=== PATIENT | male | born 1965 | race African-American/Black ===

== ENCOUNTER 2018-11-18 01:25 | Inpatient (IN) | payer MEDICAID ==
[~2018-11-18] VITALS: Ht 185.4 cm; Wt 65.8 kg
[2018-11-18] VITALS (8 sets, daily range): BP systolic 122–148; BP diastolic 60–89
[~2018-11-18 01:25] MED LIST: ALBU18HF2 IH
[2018-11-18] MEDS ORDERED: MAGNESIUM 2 G PREMIX 50 ML IV STA (01:33)
[2018-11-18] MEDS ORDERED: IPRATROPIUM BROMIDE (0.02%) 0.5MG/2.5ML NEB HHN STA (01:33)
[2018-11-18] MEDS ORDERED: ALBUTEROL (0.083%) 2.5MG/3ML NEB HHN STA (01:33)
[2018-11-18] MEDS ORDERED: METHYLPREDNISOLONE SOD SUCC 125 MG/2 ML VIAL IV STA (01:33)
[2018-11-18 03:46] LABS: HEMATOCRIT 45.7 % (42.0-52.0); HEMOGLOBIN 14.7 g/dL (14.0-18.0); MEAN CORPUSCULAR HEMOGLOBIN 30.8 pg (28.0-32.0); MEAN CORPUSCULAR VOLUME 95.6 fL (80.0-94.0); PLATELET 184 x1000/uL (130-400); RED BLOOD CELL COUNT 4.78 mill/uL (4.7-6.1); RED CELL DISTRIBUTION WIDTH 15.1 % (11.6-14.6)
[2018-11-18 03:48] LABS: CHLORIDE 109 mEq/L (98-107)
[2018-11-18 08:13] LABS: BG BASE EXCESS 3.4 mmol/L (-2.0-2.0); BG BILEVEL POS AIRWAY PRESSURE 15/5; BG CARBOXYHEMOGLOBIN 2.8 % (0.5-1.5); BG DEOXYHEMOGLOBIN 1.5 % (0.0-5.0); BG FRACTION INSPIRED OXYGEN 50; BG HCO3 ACT 30.3 mmol/L (22.0-26.0); BG METHEMOGLOBIN 0.2 % (0.0-1.5); BG OXYGEN SATURATION 98.5 % (92.0-98.5); BG OXYHEMOGLOBIN 95.5 % (94.0-97.0); BG PCO2 54.7 mmHg (35.0-45.0); BG PH 7.361 (7.350-7.450); BG PO2 126.5 mmHg (75.0-100.0); BG SAMPLE SITE RIGHT BRACHIAL; BG TOTAL HEMOGLOBIN 15.2 g/dL (12.0-18.0); BG VENT MODE MASK - BIPAP
[2018-11-18] MEDS ORDERED: IBUP-2030 MT (09:31)
[2018-11-18] MEDS ORDERED: IPRATROPIUM/ALBUTEROL 0.5-3(2.5)MG/3ML NEB HHN PRN (12:15)
[2018-11-18] MEDS ORDERED: MAGNESIUM/ALUMINUM HYDROXIDE/SIMETHICONE 30ML UDC PO PRN (12:45)
[2018-11-18] MEDS ORDERED: CLONIDINE 0.1MG TABLET PO PRN (12:45)
[2018-11-18] MEDS: IPRATROPIUM/ALBUTEROL 0.5-3(2.5)MG/3ML NEB HHN SCH ×3 (12:55→20:26)
[2018-11-18] MEDS: METHYLPREDNISOLONE SOD SUCC 40 MG/ML VIAL IV SCH ×2 (13:38→21:43)
[2018-11-18] MEDS: NICOTINE 14MG PATCH TD SCH (13:39)
[2018-11-18 15:05] LABS: CLARITY URINE CLEAR (CLEAR); COLOR URINE YELLOW (YELLOW); KETONES URINE NEGATIVE (NEGATIVE); LEUKOCYTE ESTERASE URINE NEGATIVE (NEGATIVE); NITRITE URINE NEGATIVE (NEGATIVE); OCCULT BLOOD URINE NEGATIVE (NEGATIVE); PH URINE 7.5 (4.5-8.0); PROTEIN URINE NEGATIVE (NEGATIVE); SPECIFIC GRAVITY URINE 1.023 (1.005-1.030); UROBILINOGEN URINE 0.2 E.U./dL (0.2-1.0)
[2018-11-18 15:20] LABS: *COCAINE SCREEN URINE PRESUMTIVE POSITIVE (NEGATIVE); METHADONE URINE SCREEN NEGATIVE (NEGATIVE); OPIATES URINE SCREEN NEGATIVE (NEGATIVE)
[2018-11-18 15:21] LABS: *AMPHETAMINES SCREEN URINE NEGATIVE (NEGATIVE); *BARBITURATES SCREEN URINE NEGATIVE (NEGATIVE); *BENZODIAZEPINES SCREEN URINE NEGATIVE (NEGATIVE); CANNABINOID URINE SCREEN PRESUMTIVE POSITIVE (NEGATIVE); PHENCYCLIDINE URINE SCREEN NEGATIVE (NEGATIVE)
[2018-11-18 17:27] LABS: PHOSPHORUS 2.1 mg/dL (2.5-4.9)
[2018-11-18] MEDS: HYDROCODONE/ACETAMINOPHEN 5/325MG TABLET PO PRN (20:32)
[2018-11-19] VITALS (10 sets, daily range): BP systolic 113–130; BP diastolic 57–81
[2018-11-19] MEDS: IPRATROPIUM/ALBUTEROL 0.5-3(2.5)MG/3ML NEB HHN SCH ×5 (03:58→21:50)
[2018-11-19] MEDS: METHYLPREDNISOLONE SOD SUCC 40 MG/ML VIAL IV SCH ×3 (06:08→22:06)
[2018-11-19 08:01] LABS: BASOPHILS % 0.2 % (0.0-2.0); HEMOGLOBIN. 15.2 g/dL (14.0-18.0); LYMPHOCYTES % 18.6 % (20.0-50.0); MEAN CORPUSCULAR HEMOGLOBIN 31.5 pg (28.0-32.0); MEAN CORPUSCULAR VOLUME 95.4 fL (80.0-94.0); MEAN PLATELET VOLUME 10.1 fl (7.4-10.4); MONOCYTES % 6.5 % (2.0-8.0); NEUTROPHILS % 74.7 % (40.0-76.0); PLATELET 208 x1000/uL (130-400); RED BLOOD CELL COUNT 4.82 mill/uL (4.7-6.1); RED CELL DISTRIBUTION WIDTH 15.1 % (11.6-14.6)
[2018-11-19] MEDS: NICOTINE 14MG PATCH TD SCH (10:04)
[2018-11-19] MEDS: AZITHROMYCIN 500 MG TABLET PO SCH (10:08)
[2018-11-19 10:16] LABS: CHLORIDE 107 mEq/L (98-107)
[2018-11-19 10:26] LABS: PHOSPHORUS 3.5 mg/dL (2.5-4.9)
[2018-11-19] MEDS: ACETYLCYSTEINE 100MG/ML 10% VIAL 4ML INH SCH (12:31)
[2018-11-20] VITALS (7 sets, daily range): BP systolic 116–137; BP diastolic 67–81
[2018-11-20] MEDS: ACETYLCYSTEINE 100MG/ML 10% VIAL 4ML INH SCH ×3 (01:10→16:19)
[2018-11-20] MEDS: IPRATROPIUM/ALBUTEROL 0.5-3(2.5)MG/3ML NEB HHN SCH ×6 (01:12→21:30)
[2018-11-20] MEDS: METHYLPREDNISOLONE SOD SUCC 40 MG/ML VIAL IV SCH ×3 (05:14→22:05)
[2018-11-20 07:04] LABS: BASOPHILS % 0.3 % (0.0-2.0); HEMATOCRIT. 46.3 % (42.0-52.0); HEMOGLOBIN. 15.2 g/dL (14.0-18.0); LYMPHOCYTES % 20.1 % (20.0-50.0); MEAN CORPUSCULAR HEMOGLOBIN 31.5 pg (28.0-32.0); MEAN CORPUSCULAR VOLUME 95.9 fL (80.0-94.0); MEAN PLATELET VOLUME 9.5 fl (7.4-10.4); MONOCYTES % 6.2 % (2.0-8.0); NEUTROPHILS % 73.4 % (40.0-76.0); PLATELET 213 x1000/uL (130-400); RED BLOOD CELL COUNT 4.83 mill/uL (4.7-6.1); RED CELL DISTRIBUTION WIDTH 14.8 % (11.6-14.6)
[2018-11-20 07:11] LABS: CHLORIDE 105 mEq/L (98-107)
[2018-11-20] MEDS: NICOTINE 14MG PATCH TD SCH (08:47)
[2018-11-20] MEDS: AZITHROMYCIN 500 MG TABLET PO SCH (08:48)
[2018-11-20] MEDS: HYDROCODONE/ACETAMINOPHEN 5/325MG TABLET PO PRN ×2 (08:50→13:33)
[2018-11-20] MEDS: ONDANSETRON HCL 4MG/2ML INJ IV PRN ×2 (12:27→22:05)
[2018-11-21] VITALS: BP 155/84
[2018-11-21 04:00] VITALS: BP 145/87
[2018-11-21] MEDS: IPRATROPIUM/ALBUTEROL 0.5-3(2.5)MG/3ML NEB HHN SCH ×5 (05:45→20:04)
[2018-11-21] MEDS: METHYLPREDNISOLONE SOD SUCC 40 MG/ML VIAL IV SCH ×2 (05:49→21:40)
[2018-11-21] MEDS: ACETYLCYSTEINE 100MG/ML 10% VIAL 4ML INH SCH ×2 (07:55→16:29)
[2018-11-21 08:00] VITALS: BP 124/67
[2018-11-21] MEDS: AZITHROMYCIN 500 MG TABLET PO SCH (08:39)
[2018-11-21] MEDS: ACETAMINOPHEN 325MG TABLET PO PRN (08:42)
[2018-11-21] MEDS: NICOTINE 14MG PATCH TD SCH (08:42)
[2018-11-21 12:00] VITALS: BP 113/72
[2018-11-21 16:00] VITALS: BP 122/68
[2018-11-21 20:00] VITALS: BP 103/69
[2018-11-22] VITALS: BP 110/66
[2018-11-22] MEDS: IPRATROPIUM/ALBUTEROL 0.5-3(2.5)MG/3ML NEB HHN SCH ×4 (01:06→11:58)
[2018-11-22] MEDS: ACETYLCYSTEINE 100MG/ML 10% VIAL 4ML INH SCH ×2 (01:10→07:41)
[2018-11-22 04:00] VITALS: BP 111/69
[2018-11-22 06:13] LABS: BASOPHILS % 0.3 % (0.0-2.0); EOSINOPHILS % 0.1 % (0.0-5.0); HEMATOCRIT. 50.9 % (42.0-52.0); HEMOGLOBIN. 16.8 g/dL (14.0-18.0); LYMPHOCYTES % 28.9 % (20.0-50.0); MEAN CORPUSCULAR HEMOGLOBIN 31.3 pg (28.0-32.0); MEAN CORPUSCULAR VOLUME 95.2 fL (80.0-94.0); MEAN PLATELET VOLUME 8.9 fl (7.4-10.4); MONOCYTES % 7.3 % (2.0-8.0); NEUTROPHILS % 63.4 % (40.0-76.0); PLATELET 216 x1000/uL (130-400); RED BLOOD CELL COUNT 5.35 mill/uL (4.7-6.1); RED CELL DISTRIBUTION WIDTH 14.7 % (11.6-14.6)
[2018-11-22 06:40] LABS: CHLORIDE 102 mEq/L (98-107)
[2018-11-22 08:00] VITALS: BP 88/52
[2018-11-22] MEDS: METHYLPREDNISOLONE SOD SUCC 40 MG/ML VIAL IV SCH (08:33)
[2018-11-22] MEDS: AZITHROMYCIN 500 MG TABLET PO SCH (08:33)
[2018-11-22] MEDS: ACETAMINOPHEN 325MG TABLET PO PRN (08:39)
[2018-11-22] MEDS: NICOTINE 14MG PATCH TD SCH (08:39)
[2018-11-22 10:15] VITALS: BP 98/56
[2018-11-22 12:00] VITALS: BP 110/61
[2018-11-22] MEDS ORDERED: PREDNISONE 20MG TABLET PO SCH (13:00)
[2018-11-22 14:57] LABS: BG CARBOXYHEMOGLOBIN 1.2 % (0.5-1.5); BG DEOXYHEMOGLOBIN 5.7 % (0.0-5.0); BG FRACTION INSPIRED OXYGEN 21; BG HCO3 ACT 28.8 mmol/L (22.0-26.0); BG METHEMOGLOBIN 0.3 % (0.0-1.5); BG OXYGEN SATURATION 94.2 % (92.0-98.5); BG OXYHEMOGLOBIN 92.8 % (94.0-97.0); BG PCO2 47.6 mmHg (35.0-45.0); BG PH 7.399 (7.350-7.450); BG PO2 68.3 mmHg (75.0-100.0); BG SAMPLE SITE RIGHT BRACHIAL; BG TOTAL HEMOGLOBIN 16.7 g/dL (12.0-18.0); BG VENT MODE ROOM AIR
[2018-11-22] MEDS ORDERED: P20 PO (15:00)
[2018-11-22] MEDS ORDERED: AZIT500T5 PO (15:00)
[2018-11-22 15:11] VITALS: BP 110/61
== END 2018-11-22 15:35 | disposition home or self-care (01) | DRG 140 ==
LOC: ER 01:25 → 5EST 03:35 → EDBEDREQTM 03:38 → EDBEDREQ 03:38 → ENRESERV 07:01 → 6WST 11-19 14:20
PROVIDERS: ADMIT Internal Medicine; ATTEND Internal Medicine
PROC: 5A09357 Assistance with Respiratory Ventilation, Less than 24 Consecutive Hours, Continuous Positive Airway Pressure (ICD-10-PCS; principal; 2018-11-18)
DX: J44.1 Chronic obstructive pulmonary disease with (acute) exacerbation (principal); J96.21 Acute and chronic respiratory failure with hypoxia; E87.0 Hyperosmolality and hypernatremia; E87.8 Other disorders of electrolyte and fluid balance, not elsewhere classified; J68.0 Bronchitis and pneumonitis due to chemicals, gases, fumes and vapors; F14.10 Cocaine abuse, uncomplicated; F12.10 Cannabis abuse, uncomplicated; I10 Essential (primary) hypertension; F17.210 Nicotine dependence, cigarettes, uncomplicated; M54.5 Low back pain; Z79.51 Long term (current) use of inhaled steroids
CPT/HCPCS: 36415; 36600; 71045; 80048; 80061; 80305; 82375; 82805; 83036; 83735; 84100; 84443; 85027; 87070; 87804; 94640; 94644; 94660; 96365; 96375; 99291; J2405; J2920; J2930; J3475; J7512; J7608; J7611; J7620

== ENCOUNTER 2019-11-05 20:29 | Inpatient (IN) | payer MEDICAID, OTHER ==
[~2019-11-05] VITALS: Ht 185.4 cm; Wt 73.9 kg
[~2019-11-05 20:29] MED LIST changes: +AZIT500T5 PO; +P20 PO
[2019-11-05] MEDS ORDERED: METHYLPREDNISOLONE SOD SUCC 125 MG/2 ML VIAL IV STA (20:45)
[2019-11-05] MEDS ORDERED: AZITHROMYCIN 500 MG in DEXT 5% WATER 250 ML IV ONE (20:45)
[2019-11-05] MEDS ORDERED: IPRATROPIUM BROMIDE (0.02%) 0.5MG/2.5ML NEB HHN STA (20:45)
[2019-11-05] MEDS ORDERED: ALBUTEROL (0.083%) 2.5MG/3ML NEB HHN STA (20:45)
[2019-11-05 21:42] LABS: BASOPHILS % 0.5 % (0.0-2.0); EOSINOPHILS % 3.3 % (0.0-5.0); HEMATOCRIT. 43.7 % (42.0-52.0); HEMOGLOBIN. 14.4 g/dL (14.0-18.0); LYMPHOCYTES % 53.2 % (20.0-50.0); MEAN CORPUSCULAR VOLUME 91.4 fL (80.0-94.0); MEAN PLATELET VOLUME 7.9 fl (7.4-10.4); MONOCYTES % 9.2 % (2.0-8.0); NEUTROPHILS % 33.8 % (40.0-76.0); PLATELET 143 x1000/uL (130-400); RED BLOOD CELL COUNT 4.78 mill/uL (4.7-6.1); RED CELL DISTRIBUTION WIDTH 14.5 % (11.6-14.6)
[2019-11-05 21:46] LABS: INR 0.9; PROTHROMBIN TIME 9.6 sec (9.6-11.0)
[2019-11-05 21:53] LABS: CHLORIDE 113 mEq/L (98-107)
[2019-11-05] MEDS ORDERED: DEXTROSE 50% WATER 50ML SYRINGE IV ONE (22:30)
[2019-11-05] MEDS ORDERED: DEXT 5%/LACTATED RINGERS 1,000 ML IV ONE (22:30)
[2019-11-05] MEDS ORDERED: BENZONATATE 100MG CAPSULE PO PRN (23:00)
[2019-11-05] MEDS ORDERED: CLONIDINE 0.1MG TABLET PO PRN (23:00)
[2019-11-05] MEDS ORDERED: ACETAMINOPHEN 325MG TABLET PO PRN (23:00)
[2019-11-05] MEDS ORDERED: IPRATROPIUM/ALBUTEROL 0.5-3(2.5)MG/3ML NEB HHN PRN (23:00)
[2019-11-05] MEDS ORDERED: ONDANSETRON HCL 4MG/2ML INJ IV PRN (23:00)
[2019-11-05 23:15] VITALS: BP 122/60
[2019-11-06 00:44] VITALS: BP 122/60
[2019-11-06] MEDS: IPRATROPIUM/ALBUTEROL 0.5-3(2.5)MG/3ML NEB HHN SCH ×6 (01:25→21:21)
[2019-11-06 04:00] VITALS: BP 121/71
[2019-11-06] MEDS: METHYLPREDNISOLONE SOD SUCC 40 MG/ML VIAL IV SCH ×3 (05:42→21:10)
[2019-11-06 08:00] VITALS: BP 138/87
[2019-11-06] MEDS: AMLODIPINE 5MG TABLET PO SCH ×2 (08:52→21:10)
[2019-11-06] MEDS: ENOXAPARIN 40MG/0.4ML SYR SUBCUT SCH (08:54)
[2019-11-06 12:00] VITALS: BP 124/71
[2019-11-06 15:08] LABS: CHLORIDE 109 mEq/L (98-107)
[2019-11-06 20:00] VITALS: BP 120/78
[2019-11-06] MEDS: BUDESONIDE 0.5MG/2ML NEB HHN SCH (21:20)
[2019-11-07] VITALS: BP 129/64
[2019-11-07] MEDS: IPRATROPIUM/ALBUTEROL 0.5-3(2.5)MG/3ML NEB HHN SCH ×5 (01:30→21:07)
[2019-11-07 08:00] VITALS: BP 113/70
[2019-11-07] MEDS: BUDESONIDE 0.5MG/2ML NEB HHN SCH ×2 (08:36→21:07)
[2019-11-07] MEDS: AMLODIPINE 5MG TABLET PO SCH ×2 (08:58→21:00)
[2019-11-07] MEDS: ENOXAPARIN 40MG/0.4ML SYR SUBCUT SCH (09:10)
[2019-11-07 12:00] VITALS: BP 102/60
[2019-11-07] MEDS: METHYLPREDNISOLONE SOD SUCC 40 MG/ML VIAL IV SCH ×2 (13:45→21:09)
[2019-11-07 16:00] VITALS: BP 128/62
[2019-11-07 20:03] LABS: *AMPHETAMINES SCREEN URINE NEGATIVE (NEGATIVE); *BARBITURATES SCREEN URINE NEGATIVE (NEGATIVE); *BENZODIAZEPINES SCREEN URINE NEGATIVE (NEGATIVE); *COCAINE SCREEN URINE PRESUMTIVE POSITIVE (NEGATIVE); METHADONE URINE SCREEN NEGATIVE (NEGATIVE); OPIATES URINE SCREEN NEGATIVE (NEGATIVE)
[2019-11-07 20:04] LABS: CANNABINOID URINE SCREEN PRESUMTIVE POSITIVE (NEGATIVE); PHENCYCLIDINE URINE SCREEN NEGATIVE (NEGATIVE)
[2019-11-07 20:36] VITALS: BP 109/54
[2019-11-08 00:06] VITALS: BP 132/68
[2019-11-08] MEDS: IPRATROPIUM/ALBUTEROL 0.5-3(2.5)MG/3ML NEB HHN SCH ×6 (00:36→21:33)
[2019-11-08 04:00] VITALS: BP 126/59
[2019-11-08] MEDS: METHYLPREDNISOLONE SOD SUCC 40 MG/ML VIAL IV SCH (05:56)
[2019-11-08 06:02] LABS: BASOPHILS % 0.1 % (0.0-2.0); HEMATOCRIT. 42.1 % (42.0-52.0); LYMPHOCYTES % 15.4 % (20.0-50.0); MEAN CORPUSCULAR HEMOGLOBIN 30.3 pg (28.0-32.0); MEAN CORPUSCULAR VOLUME 90.9 fL (80.0-94.0); MEAN PLATELET VOLUME 9.2 fl (7.4-10.4); MONOCYTES % 4.3 % (2.0-8.0); NEUTROPHILS % 80.2 % (40.0-76.0); PLATELET 164 x1000/uL (130-400); RED BLOOD CELL COUNT 4.63 mill/uL (4.7-6.1); RED CELL DISTRIBUTION WIDTH 14.9 % (11.6-14.6)
[2019-11-08 06:14] LABS: CHLORIDE 106 mEq/L (98-107)
[2019-11-08 08:00] VITALS: BP 118/59
[2019-11-08] MEDS: ENOXAPARIN 40MG/0.4ML SYR SUBCUT SCH (09:13)
[2019-11-08] MEDS: AMLODIPINE 5MG TABLET PO SCH ×2 (09:13→21:21)
[2019-11-08] MEDS: BUDESONIDE 0.5MG/2ML NEB HHN SCH ×2 (09:50→21:33)
[2019-11-08] MEDS ORDERED: GUAIFENESIN-DM 200MG-20MG/10ML UDC PO PRN (11:45)
[2019-11-08 12:00] VITALS: BP 110/71
[2019-11-08] MEDS: BENZONATATE 100MG CAPSULE PO SCH ×2 (12:24→21:22)
[2019-11-08 16:00] VITALS: BP 111/56
[2019-11-08 21:01] VITALS: BP 116/54
[2019-11-09 00:41] VITALS: BP 114/52
[2019-11-09] MEDS: IPRATROPIUM/ALBUTEROL 0.5-3(2.5)MG/3ML NEB HHN SCH ×4 (00:54→12:50)
[2019-11-09 04:00] VITALS: BP 130/56
[2019-11-09] MEDS: BENZONATATE 100MG CAPSULE PO SCH ×2 (05:45→13:14)
[2019-11-09 08:00] VITALS: BP 117/62
[2019-11-09] MEDS: AMLODIPINE 5MG TABLET PO SCH (08:46)
[2019-11-09] MEDS: ENOXAPARIN 40MG/0.4ML SYR SUBCUT SCH (08:47)
[2019-11-09] MEDS ORDERED: PREDNISONE 20MG TABLET PO SCH (09:00)
[2019-11-09] MEDS: BUDESONIDE 0.5MG/2ML NEB HHN SCH (09:27)
[2019-11-09] MEDS ORDERED: ALBU2.5V13 NEB (11:51)
[2019-11-09] MEDS ORDERED: ALBU18HF2 IH (11:51)
[2019-11-09] MEDS ORDERED: MELO-104 MT (11:52)
[2019-11-09 12:00] VITALS: BP 132/78
[2019-11-09 12:10] VITALS: BP_SYST 117; BP_SYST 132; BP_DIAS 62; BP_DIAS 78
== END 2019-11-09 16:48 | disposition home or self-care (01) | DRG 133 ==
LOC: ER 20:29 → 6WST 20:59 → EDBEDREQ 21:03 → EDBEDREQTM 21:03 → ENRESERV 21:45
PROVIDERS: ADMIT Internal Medicine; ATTEND Internal Medicine
PROC: 5A09357 Assistance with Respiratory Ventilation, Less than 24 Consecutive Hours, Continuous Positive Airway Pressure (ICD-10-PCS; principal; 2019-11-05)
DX: J96.00 Acute respiratory failure, unspecified whether with hypoxia or hypercapnia (principal); E87.8 Other disorders of electrolyte and fluid balance, not elsewhere classified; E87.0 Hyperosmolality and hypernatremia; E44.1 Mild protein-calorie malnutrition; J44.1 Chronic obstructive pulmonary disease with (acute) exacerbation; F12.90 Cannabis use, unspecified, uncomplicated; F17.210 Nicotine dependence, cigarettes, uncomplicated; F14.90 Cocaine use, unspecified, uncomplicated; I10 Essential (primary) hypertension; Z79.899 Other long term (current) drug therapy; Z71.6 Tobacco abuse counseling; Z68.21 Body mass index [BMI] 21.0-21.9, adult
CPT/HCPCS: 36415; 71045; 80048; 80305; 82962; 83880; 84484; 94640; 94660; 99285; J0456; J1650; J2920; J2930; J7060; J7121; J7512; J7611; J7620; J7626